=== PATIENT | female | born 1960 | race Caucasian/White ===

== ENCOUNTER → 2023-07-11 15:12 | Outpatient (REF) | payer MEDICARE, SELFPAY | LOC: WDC 15:12 | PROVIDERS: ATTENDING PHYSICIAN Obstetrics & Gynecology Gynecology; FAMILY PHYSICIAN Internal Medicine | DX: Z12.31 Encounter for screening mammogram for malignant neoplasm of breast (principal) | CPT/HCPCS: 77063; 77067 ==

== ENCOUNTER → 2023-07-19 08:24 | Outpatient (REF) | payer MEDICARE, SELFPAY | LOC: RAD 08:24 | PROVIDERS: ATTENDING PHYSICIAN Internal Medicine | DX: M85.80 Other specified disorders of bone density and structure, unspecified site (principal); Z78.0 Asymptomatic menopausal state | CPT/HCPCS: 77080 ==

== ENCOUNTER → 2024-02-14 12:47 | Outpatient (REF) | payer MEDICARE, SELFPAY | LOC: WDC 12:47 | PROVIDERS: ATTENDING PHYSICIAN Obstetrics & Gynecology Gynecology; FAMILY PHYSICIAN Internal Medicine | DX: R92.2 Inconclusive mammogram (principal) | CPT/HCPCS: 76641 ==

== ENCOUNTER 2024-04-19 15:45 | Emergency (ER) | payer MEDICARE, SELFPAY ==
[2024-04-19 15:47] VITALS: BP 119/66
[2024-04-19 16:23] VITALS: BMI 19.7
--- NOTE | 2024-04-19 16:44 | ED.GENMED ---
History of Present Illness
General
Chief Complaint: Musculo-Skeletal Complaint
Source: patient
Exam Limitations: none
Time Seen by Provider: 04/19/24 16:02
Nursing documentation reviewed up to this point in time: agreed with
History of Present Illness
History of Present Illness:
pt is a 63 y/o F with no chronic medical problems
here with b/l wrist pain after she fell on outstretched hands while playing pickle ball today
she has pain and sweling worse in the L raidal wrist than the r wrist
the pain did shoot to her elbow
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
no head strike
landedon her buttocks
no numbness/tingling
Past History
Past History
ED Past Medical History: None
ED Past Surgical History: None
Social History
Tobacco: Non-smoker
Alcohol: None
Drug: None
Personal:
Living: with family
Review of Systems
Review of Systems
Allergies reviewed?: Yes
All Other Systems: Not applicable
Phy Exam
Physical Exam
Physical Exam:
GENERAL: Alert , in no apparent distress
HEAD: NCAT
NECK: no midline tenderness, active ROM intact, no paraspinal muscle tenderness;
CARDIAC: Regular rate and rhythm, no edema
LUNGS: Clear breath sounds bilaterally, no acute respiratory distress, no wheezes/rales/rhonchi
ABDOMEN: Soft, without focal tenderness, no r/g, no cvat
NEUROLOGICAL: Alert and oriented, no focal neuro deficits, CN intact, 5/5 strength, sensation intact
SKIN: Warm and dry,
MUSCULOSKELETAL: L wrist radius/snuff box swelling tenderness
no deformity
painful limited rom L wrist
no elbow or prox forearm tenderness
right wrist full rom and nontender
no swelling
normal elbow
PSYCH: Normal and appropriate interaction.
Course
Orders/Labs/Results
Orders:
Orders
04/19/24 15:51
CR Wrist - Left Min 3 Views Urgent
Comment:
Reason For Exam: fall
Wrist, Right 3 Views [CR Wrist - Right Min 3 Views] Urgent
Comment:
Reason For Exam: fall
Vital Signs
Initial and Last Documented VS:
Initial Vital Signs
Temp Pulse Resp BP Pulse Ox
36.7 C 59 16 119/66 99
04/19/24 15:47 04/19/24 15:47 04/19/24 15:47 04/19/24 15:47 04/19/24 15:47
Last Documented Vital Signs
Temp Pulse Resp BP Pulse Ox
36.7 C 71 16 135/84 99
04/19/24 15:47 04/19/24 17:38 04/19/24 15:47 04/19/24 17:38 04/19/24 15:47
MDM/Problems Addressed
Differential Diagnosis Includes:
wrist fracture, wrist sprain
MDM/Problems Addressed:
63 y/o fall mechanical in causing injury to both wrists but left greater than right. She has no significant deformity but some soft tissue swelling of the right distal radius and x-rays independently reviewed by me to reveal a nondisplaced distal
radius fracture. She will be splinted in a sugar-tong and given outpatient follow-up instructions for orthopedics. Her right wrist is likely sprain, Basilio wrap, RICE
*Critical Care Note
Total Time (30-74mins, 75-104mins- exclusive of procedures): Not Applicable
ED Attending Note
-
Portions of this chart may have been created with voice recognition software.� Occasional wrong word or��sound alike� substitutions may have occurred due to the inherent limitations of voice recognition software.
Discharge Plan
Departure
Patient Disposition: Home (Routine Discharge)
Date of Disposition: 04/19/24
Time of Disposition: 17:02
Patient with high blood pressure during this ER visit?: No
Condition: Fair
Covid-19: Not Applicable
Discharge Problem:
Fracture of left wrist
Instructions: Wrist Fracture (DC)
Referrals:
Soni Aguirre MD [Family Provider] -
Perry Maza MD [Active] - Follow up in 5-7 days
Activity Restrictions/Additional Instructions:
YOU HAVE A LEFT WRIST FRACTURE (DISTAL RADIUS)
KEEP THE SPLINT ON
ICE OFF AND ON
DO NOT GET THE SPLINT WET
CALL ORTHO THIS WEEK FOR FOLLOW UP
TYLENOL OR MOTRIN FOR PAIN
TYLENOL 1000 MG 2-3 TIMES A DAY (EVERY 6 HOURS), MAX 3000 MG DAILY
MOTRIN 400 MG EVERY 8 HOURS WITH FOOD (3 TIMES A DAY)
ELEVATE
RETURN FO RANY CONCERNS
YOUR RIGHT WRIST WAS NOT FRACTURED.
Interventions
Interventions:
*Risk Screen - Suicide Last Done: 04/19/24 15:47
*General Assessment Last Done: 04/19/24 15:47
*Neglect/Abuse Screening Last Done: 04/19/24 15:47
ED- Fall Risk Assessment Last Done: 04/19/24 16:23
*ED COVID-19 Vaccine History Last Done: 04/19/24 16:23
*Nursing Disposition Last Done: 04/19/24 17:38
ED-Musculoskeletal Assessment Last Done: 04/19/24 16:24
Discharge Date and Time
Discharge Date/Time: 04/19/24 18:32
Print Language: SERBIAN
[2024-04-19 17:38] VITALS: BP 135/84
== END 2024-04-19 18:32 | disposition home or self-care (01) ==
LOC: EMR 15:45
PROVIDERS: EMERGENCY PHYSICIAN Emergency Medicine; FAMILY PHYSICIAN Internal Medicine
DX: S52.502A Unspecified fracture of the lower end of left radius, initial encounter for closed fracture (principal); W19.XXXA Unspecified fall, initial encounter
CPT/HCPCS: 99283; 73110

== ENCOUNTER 2024-06-20 09:56 | Outpatient (RCR) | payer MEDICARE, SELFPAY | END 2024-06-20 23:59 | disposition home or self-care (01) | LOC: ROT 09:56 | PROVIDERS: ATTENDING PHYSICIAN Orthopaedic Surgery Hand Surgery; FAMILY PHYSICIAN Internal Medicine | DX: M25.531 Pain in right wrist (principal); M25.532 Pain in left wrist; Z73.6 Limitation of activities due to disability; S52.502D Unspecified fracture of the lower end of left radius, subsequent encounter for closed fracture with routine healing; S63.501D Unspecified sprain of right wrist, subsequent encounter; W18.30XD Fall on same level, unspecified, subsequent encounter | CPT/HCPCS: 97010; 97022; 97110; 97166; 97535 ==

== ENCOUNTER 2024-06-21 10:46 | Emergency (ER) | payer MEDICARE, SELFPAY ==
[2024-06-21 10:52] VITALS: BP 159/66
[2024-06-21 11:09] LABS: % Basophils 0.9 % (0-2); % Eosinophils 1.1 % (0-6); % Immature Granulocytes 0.4 % (0-0.5); % Lymphocytes 39.2 % (20.5-51.1); % Monocytes 6.6 % (1.7-9.3); % Neutrophils 51.8 % (42.2-75.2); Absolute Basophils 0.1 10^3/uL (0-0.2); Absolute Eosinophils 0.1 10^3/uL (0-0.7); Absolute Lymphocytes 2.2 10^3/uL (1.2-3.4); Absolute Monocytes 0.4 10^3/uL (0.1-0.6); Absolute Neutrophils 2.8 10^3/uL (1.4-6.5); Hematocrit 41.8 % (37.0-47.0); Hemoglobin 14.1 g/dL (12.0-16.0); Mean Corp Hgb Conc. 33.7 g/dL (33.0-37.0); Mean Corpuscular Hgb 29.6 pg (27.0-31.0); Mean Corpuscular Volume 87.6 fL (81.0-99.0); Nucleated Red Blood Cells % 0 %; Platelet Count 277 10^3/uL (130-400); Red Blood Cell Count 4.77 10^6/uL (4.20-5.40); White Blood Cell Count 5.5 10^3/uL (4.8-10.8)
[2024-06-21 11:22] LABS: ALT (SGPT) 18 U/L (0-35); AST (SGOT) 27 U/L (14-36); Albumin 4.5 g/dl (3.5-5.0); Alkaline Phosphatase 54 U/L (38-126); Blood Urea Nitrogen 14 mg/dl (7-17); Calcium 9.2 mg/dl (8.4-10.2); Carbon Dioxide 24 mmol/L (22-30); Chloride 103 mmol/L (98-107); Glucose 103 mg/dl (70-99); Potassium 4.1 mmol/L (3.5-5.1); Sodium 138 mmol/L (135-145); Total Bilirubin 0.6 mg/dl (0.2-1.3); eGFR > 60.00
--- NOTE | 2024-06-21 11:34 | ED.GENMED ---
History of Present Illness
General
Chief Complaint: Back Pain
Source: patient
Exam Limitations: none
Time Seen by Provider: 06/21/24 11:25
History of Present Illness
History of Present Illness:
See MDM
Past History
Past History
ED Past Medical History: None
ED Past Surgical History: Orthopedic
Social History
Tobacco: Non-smoker
Alcohol: None
Drug: None
Personal:
Living: with family
Phy Exam
Physical Exam
Physical Exam:
See MDM
Course
Orders/Labs/Results
Orders:
Orders
06/21/24 10:52
Electrocardiogram (*1) Urgent
Reason for Study: Bradycardia / Tachycardia
EKG- Treatment ONCE
06/21/24 10:57
Complete Blood Count/With Diff Urgent
Comprehensive Metabolic Panel Urgent
06/21/24 11:34
Oxycodone [Roxicodone] 5 mg PO NOW STA
Lumbar Spine Complete, 4 View [CR Lumbar Spine Comp Min 4 Vw*] Urgent
Comment:
Reason For Exam: left back pain radiating to leg
06/21/24 12:25
Ketorolac [Toradol] 30 mg IV NOW STA
06/21/24 13:14
Cyclobenzaprine HCl [Flexeril] 10 mg PO NOW STA
Abnormal Lab Results
06/21/24
10:57
Glucose 103 H mg/dl
(70-99)
06/21/24 10:57
06/21/24 10:57
Vital Signs
Initial and Last Documented VS:
Initial Vital Signs
Temp Pulse Resp BP Pulse Ox
97.4 F 61 18 159/66 100
06/21/24 10:52 06/21/24 10:52 06/21/24 10:52 06/21/24 10:52 06/21/24 10:52
Last Documented Vital Signs
Temp Pulse Resp BP Pulse Ox
97.4 F 66 18 128/69 99
06/21/24 10:52 06/21/24 15:15 06/21/24 15:15 06/21/24 15:15 06/21/24 15:15
MDM/Problems Addressed
Differential Diagnosis Includes:
HPI and MDM Narrative:
64-year-old female presenting for evaluation of left back pain and left buttock pain. Patient states symptoms got worse this morning and she took Tylenol and Advil with minimal relief. On arrival, patient states he started to feel better but
believes it is because she is not moving. She did have a fall several weeks back which resulted in a wrist fracture. She is unsure if she injured her back. She has a prior history of sciatica but this has not been an issue in over 10 years. She
denies numbness or tingling but states her left back pain radiates down her left thigh. Patient restarted her exercise routine and is now doing weight training. She is unsure if she overdid it. She denies rectal numbness or trouble with
defecating or urination
Basic blood work was obtained prior to my evaluation. Will obtain lumbar x-ray and provide pain relief with oxycodone and continue to reassess
Physical exam
General: Well appearing and non-toxic
HEENT: protecting airway
Neck: appears supple
CV: No evidence of cyanosis
Resp: No accessory muscle use
Abd: Non-distended
Back: Tenderness localized to palpation of gluteus near Piriformis
Extremities: No deformities. Both legs neurovascularly intact. Positive straight leg raise to the left
Neuro: alert
Psych: Normal affect
Skin: Intact
Problems Addressed including Acute and Chronic Conditions affecting care:
1. [Sciatica
Acuity: acute
Prognosis: stable
Details: Will obtain x-ray and provide pain
Updates
Lumbar x-ray without acute abnormality. Oxycodone did not help much. After Toradol, patient feeling much better. I then gave a muscle relaxant which seemed to help as well. Upon further investigation, patient still uncomfortable. I discussed
therapy and possibly admitting. Patient acknowledged my concern but declined and states she feels comfortable going home. Discussed follow-up with PCP to discuss physical therapy and MRI
Differential Diagnosis (but not limited to): Sciatica, piriformis syndrome, muscle strain, lumbar compression fracture
Testing considered: MRI but she has no red flags for spinal cord injury and discussed that should be performed in the outpatient setting
Drug therapy (if applicable): OTC meds, please see d/c instruction regarding Rx drugs
Amount and/or Complexity of Data Reviewed
Clinical info obtained from: Patient
External data reviewed: N/A
Labs I independently reviewed (but not limited to): Electrolytes within normal limits
Radiology: X-ray independently reviewed: Lumbar x-ray without fracture, lesion or malalignment
Pulse Ox: not hypoxic
EKG independently reviewed: N/A
Compensation Consultant: N/A
Critical Care: N/A
Risk of Complication:
Social Determinants of health: Good social support
Discussed with other providers: N/A
Escalation of Care includes Admit/Obs: After being observed in the Emergency Department, pt stable for discharge.
Occasional wrong word or 'sound a like' substitutions may have occurred due to the inherent limitations of voice recognition software. Read the chart carefully and recognize, using context, where substitutions have occurred.
*Critical Care Note
Total Time (30-74mins, 75-104mins- exclusive of procedures): Not Applicable
ED Attending Note
-
Portions of this chart may have been created with voice recognition software.� Occasional wrong word or��sound alike� substitutions may have occurred due to the inherent limitations of voice recognition software.
Discharge Plan
Departure
Patient Disposition: Home (Routine Discharge)
Date of Disposition: 06/21/24
Time of Disposition: 15:40
Patient with high blood pressure during this ER visit?: No
Discharge Problem:
Sciatic nerve pain
Instructions: Sciatica (DC)
Prescriptions:
New
prednisone 20 mg tablet
40 mg PO DAILY Qty: 10 0RF
diclofenac potassium 50 mg tablet
50 mg PO BID Qty: 20 0RF
metaxalone 800 mg tablet
800 mg PO TID PRN (Reason: muscle pain) Qty: 14 0RF
Referrals:
Soni Aguirre MD [Family Provider] -
Activity Restrictions/Additional Instructions:
Please return for any worsening symptoms.
You may return at any time if you have further concerns.
Please follow up with your doctor at the first available appointment, preferably this week. Please discuss your ongoing symptoms. If symptoms persist, you may benefit from physical therapy and MRI.
Thank you for choosing [facility].
Interventions
Interventions:
*Risk Screen - Suicide Last Done: 06/21/24 10:52
*General Assessment Last Done: 06/21/24 10:52
*Neglect/Abuse Screening Last Done: 06/21/24 10:52
*Nursing Disposition Last Done: 06/21/24 15:14
ED-Musculoskeletal Assessment Last Done: 06/21/24 10:55
Discharge Date and Time
Print Language: MALAYSIAN
[2024-06-21] MEDS: ROXICODONE 5 MG PO (11:39)
[2024-06-21] MEDS: TORADOL 30 MG IV (12:28)
[2024-06-21] MEDS: FLEXERIL 10 MG PO (13:49)
[2024-06-21 14:01] VITALS: BP 137/68
[2024-06-21 15:15] VITALS: BP 128/69
[2024-06-21] MEDS: DECADRON 10 MG PO (15:46)
== END 2024-06-21 15:52 | disposition home or self-care (01) ==
LOC: EMR 10:46
PROVIDERS: EMERGENCY PHYSICIAN Student in an Organized Health Care Education/Training Program; FAMILY PHYSICIAN Internal Medicine
DX: M54.9 Dorsalgia, unspecified (principal)
CPT/HCPCS: 99283; 96374; 72110; 80053; 85025; 93005

== ENCOUNTER → 2024-06-23 16:40 | Outpatient (REF) | payer MEDICARE, SELFPAY | LOC: MRI 3T 16:40 | PROVIDERS: ATTENDING PHYSICIAN Internal Medicine | DX: M54.32 Sciatica, left side (principal) | CPT/HCPCS: 72148 ==

== ENCOUNTER 2024-07-08 11:05 | Outpatient (RCR) | payer MEDICARE, SELFPAY | END 2024-07-08 23:59 | disposition home or self-care (01) | LOC: ROT 11:05 | PROVIDERS: ATTENDING PHYSICIAN Orthopaedic Surgery Hand Surgery; FAMILY PHYSICIAN Internal Medicine | DX: M25.531 Pain in right wrist (principal); M25.532 Pain in left wrist; Z73.6 Limitation of activities due to disability; S52.502D Unspecified fracture of the lower end of left radius, subsequent encounter for closed fracture with routine healing; S63.501D Unspecified sprain of right wrist, subsequent encounter; W18.30XD Fall on same level, unspecified, subsequent encounter | CPT/HCPCS: 97110 ==

== ENCOUNTER → 2024-07-16 10:41 | Outpatient (REF) | payer MEDICARE, SELFPAY | LOC: WDC 10:41 | PROVIDERS: ATTENDING PHYSICIAN Obstetrics & Gynecology Gynecology; FAMILY PHYSICIAN Internal Medicine | DX: Z12.31 Encounter for screening mammogram for malignant neoplasm of breast (principal) | CPT/HCPCS: 77063; 77067 ==

== ENCOUNTER → 2024-08-05 13:01 | Outpatient (REF) | payer MEDICARE, SELFPAY | LOC: RAD 13:01 | PROVIDERS: ATTENDING PHYSICIAN Internal Medicine | DX: N94.9 Unspecified condition associated with female genital organs and menstrual cycle (principal) | CPT/HCPCS: 76830; 76856 ==

== ENCOUNTER 2024-08-28 06:11 | Day surgery (SDC) | payer MEDICARE, SELFPAY | END 2024-08-28 09:49 | disposition home or self-care (01) | LOC: GI 06:11 | PROVIDERS: ATTENDING PHYSICIAN Internal Medicine; FAMILY PHYSICIAN Internal Medicine | DX: Z12.11 Encounter for screening for malignant neoplasm of colon (principal); D12.2 Benign neoplasm of ascending colon; D12.3 Benign neoplasm of transverse colon | CPT/HCPCS: 45385; 45380; 88305 ==

== ENCOUNTER → 2024-10-30 12:59 | Outpatient (REF) | payer MEDICARE, SELFPAY | LOC: HWRCS 12:59 | PROVIDERS: ATTENDING PHYSICIAN Internal Medicine | DX: R55 Syncope and collapse (principal); I70.90 Unspecified atherosclerosis | CPT/HCPCS: 75571; 93306 ==

== ENCOUNTER → 2024-11-03 14:24 | Outpatient (REF) | payer MEDICARE, SELFPAY | LOC: DHSLP 14:24 | PROVIDERS: ATTENDING PHYSICIAN Internal Medicine | DX: G47.30 Sleep apnea, unspecified (principal); R06.83 Snoring | CPT/HCPCS: 95800 ==

== ENCOUNTER → 2024-11-10 13:11 | Outpatient (REF) | payer MEDICARE, SELFPAY | LOC: RAD 13:11 | PROVIDERS: ATTENDING PHYSICIAN Obstetrics & Gynecology Gynecology; FAMILY PHYSICIAN Internal Medicine | DX: N83.201 Unspecified ovarian cyst, right side (principal) | CPT/HCPCS: 76830; 76856 ==

== ENCOUNTER → 2025-02-20 12:42 | Outpatient (REF) | payer MEDICARE, SELFPAY | LOC: WDC 12:42 | PROVIDERS: ATTENDING PHYSICIAN Obstetrics & Gynecology Gynecology; FAMILY PHYSICIAN Internal Medicine | DX: R92.2 Inconclusive mammogram (principal) | CPT/HCPCS: 76641 ==

== ENCOUNTER → 2025-05-04 14:57 | Outpatient (REF) | payer MEDICARE, SELFPAY | LOC: RAD 14:57 | PROVIDERS: ATTENDING PHYSICIAN Obstetrics & Gynecology Gynecology; FAMILY PHYSICIAN Internal Medicine | DX: N83.209 Unspecified ovarian cyst, unspecified side (principal) | CPT/HCPCS: 76830; 76856 ==